=== PATIENT | female | born 1940 | race Caucasian/White ===

== ENCOUNTER 2017-04-06 16:29 | Emergency (ER) | payer OTHER, MEDICARE ==
[~2017-04-06] VITALS: Ht 162.6 cm; Wt 77.7 kg
[~2017-04-06 16:29] MED LIST: AVELOX400 MG PO; FENTANYL1 EAC5 TD; GABAPENTIN300 MG PO; HYDROMORPHONE HC4 MG PO; LEVOFLOXACIN750 MG; NEURONTIN600 M1 PO; Omega III EPA + DHA PO; Oyst-Cal D, Oscal W/ PO; PERCOCET 5/31 TABLET PO; THERAGRAN1 TABLET PO; VITAMIN C PO; VITAMIN D1000 INTUN PO; Zithromax PO
[2017-04-06 17:19] LABS: CHLORIDE 104 mEq/L (99-109); POTASSIUM 4.2 mEq/L (3.7-5.4); SODIUM 140 mEq/L (136-147)
[2017-04-06 17:21] LABS: ADD MIUA? NO; BILIRUBIN NEGATIVE; BLOOD NEGATIVE; COLOR YELLOW ((YELLOW)); GLUCOSE (STRIP) NEGATIVE; KETONES NEGATIVE; LEUKOCYTES NEGATIVE; NITRITE NEGATIVE; PROTEIN (STRIP) NEGATIVE; UCUL ADDED? NO; UROBILINOGEN 0.2 MG/DL (0.2-1.0)
[2017-04-06 17:21] LABS: GLUCOSE 135 mg/dL (70-99)
[2017-04-06 17:23] LABS: ANION GAP 10 MEQ/L (2-14)
[2017-04-06 17:25] LABS: GFR ESTIMATE (CALCULATED) > 59 mL/min/
[2017-04-06 17:26] LABS: UREA NITROGEN (BUN) 13 mg/dL (9-23)
[2017-04-06 18:28] VITALS: BP 116/70
== END 2017-04-06 19:23 | disposition home or self-care (01) ==
LOC: EME 16:29
PROVIDERS: Emergency Medicine
DX: I48.91 Unspecified atrial fibrillation (principal); G89.29 Other chronic pain; M54.5 Low back pain; E78.5 Hyperlipidemia, unspecified; Z79.01 Long term (current) use of anticoagulants; Z87.442 Personal history of urinary calculi
CPT/HCPCS: 80048; 81003; 93005; 99281; 99284

== ENCOUNTER 2018-02-12 00:43 | Inpatient (IN) | payer OTHER, MEDICARE ==
[~2018-02-12] VITALS: Ht 157.5 cm; Wt 70.2 kg
[2018-02-12 01:34] LABS: HEMATOCRIT 35.8 % (36.0-46.0); HEMOGLOBIN 11.9 G/DL (11.9-15.5); MCH 29.6 PG (29.0-34.0); MCHC 33.2 G/DL (30.0-36.0); MCV 89.1 FL (83-99); PLATELET COUNT 243 K/uL (156-360); RBC DIS.WIDTH-CV 13.8 % (11.8-14.6); RBC DIS.WIDTH-SD 44.9 % (39-53); RED BLOOD COUNT 4.02 M/uL (3.80-5.20); WHITE BLOOD COUNT 9.7 K/uL (4.1-10.2)
[2018-02-12 01:38] LABS: CARBON DIOXIDE (BICARBONATE) 26.3 MEQ/L (20-31)
[2018-02-12 01:45] LABS: ALBUMIN 4.3 g/dL (3.2-4.8)
[2018-02-12 01:46] LABS: CHLORIDE 103 mEq/L (99-109); POTASSIUM 3.4 mEq/L (3.7-5.4); SODIUM 137 mEq/L (136-147)
[2018-02-12 01:48] LABS: GLUCOSE 111 mg/dL (70-99); TOTAL PROTEIN 7.1 g/dL (6.4-8.3)
[2018-02-12 01:50] LABS: TOTAL BILIRUBIN 0.7 mg/dL (0.0-1.0)
[2018-02-12 01:51] LABS: ALKALINE PHOSPHATASE 61 IU/L (3-129)
[2018-02-12 01:52] LABS: CREATININE 0.7 mg/dL (0.6-1.3); GFR ESTIMATE (CALCULATED) > 59 mL/min/
[2018-02-12 01:53] LABS: AST (GOT) 16 IU/L (2-34); UREA NITROGEN (BUN) 10 mg/dL (9-23)
[2018-02-12 01:55] LABS: ALT (GPT) 11 IU/L (3-49); LIPASE 18 U/L (1.0-51.0)
[2018-02-12 01:57] LABS: INTER. NORMALIZED RATIO 1.4; TROP-I INTERPRETATION NEGATIVE; TROPONIN-I 0.01 ng/mL (0.0-0.30)
[2018-02-12 02:00] LABS: PTT 33.4 SEC (25-37)
[2018-02-12 05:49] LABS: MAGNESIUM 2.1 mg/dL (1.3-2.7)
[2018-02-12 05:54] LABS: PHOSPHORUS 2.7 mg/dL (2.5-4.9)
[2018-02-12 07:27] VITALS: BP 139/73
[2018-02-12 09:12] LABS: BENZODIAZEPINES, URINE SCREEN Negative (200 ng/mL)
[2018-02-12 11:12] VITALS: BP 109/65
[2018-02-12 12:36] LABS: TROP-I INTERPRETATION NEGATIVE; TROPONIN-I < 0.01 ng/mL (0.0-0.30)
[2018-02-12] MEDS ORDERED: NORVASC2.5 MG PO (13:06)
[2018-02-12] MEDS ORDERED: DILAUDID4 MG PO (13:06)
[2018-02-12] MEDS ORDERED: LEXAPRO10 MG PO (13:07)
[2018-02-12] MEDS ORDERED: CARDIZEM CD,CA180 MG PO (13:08)
[2018-02-12] MEDS ORDERED: EXCEDRIN MIGRA1 EAC3 PO (13:10)
[2018-02-12] MEDS ORDERED: ESBRIET267 MG PO (13:10)
[2018-02-12] MEDS ORDERED: HEART MEDICATION PO (13:12)
[2018-02-12 15:06] VITALS: BP 100/59
[2018-02-12 18:01] LABS: TROP-I INTERPRETATION NEGATIVE; TROPONIN-I < 0.01 ng/mL (0.0-0.30)
[2018-02-12 19:48] VITALS: BP 100/62
[2018-02-12 21:05] VITALS: BP 122/70
[2018-02-13] VITALS (7 sets, daily range): BP systolic 94–138; BP diastolic 55–78
[2018-02-13 06:16] LABS: HEMATOCRIT 36.3 % (36.0-46.0); HEMOGLOBIN 11.7 G/DL (11.9-15.5); MCH 28.7 PG (29.0-34.0); MCHC 32.2 G/DL (30.0-36.0); MCV 89.2 FL (83-99); PLATELET COUNT 257 K/uL (156-360); RBC DIS.WIDTH-CV 13.7 % (11.8-14.6); RBC DIS.WIDTH-SD 44.4 % (39-53); RED BLOOD COUNT 4.07 M/uL (3.80-5.20); WHITE BLOOD COUNT 8.5 K/uL (4.1-10.2)
[2018-02-13 06:39] LABS: CHLORIDE 100 MEQ/L (99-109); CREATININE 0.6 MG/DL (0.6-1.3); GFR ESTIMATE (CALCULATED) > 59 mL/min/; GLUCOSE 92 mg/dL (70-99); POTASSIUM 3.7 MEQ/L (3.7-5.4); SODIUM 141 MEQ/L (136-147); UREA NITROGEN (BUN) 14 mg/dL (9-23)
[2018-02-14] VITALS (7 sets, daily range): BP systolic 109–135; BP diastolic 57–75
[2018-02-14 06:38] LABS: BASOPHIL (%) 0.7 % (0-1); BASOPHIL COUNT 0.1 K/uL (0-0.1); EOSINOPHIL (%) 5.3 % (0-5); EOSINOPHIL COUNT 0.4 K/uL (0-0.3); HEMATOCRIT 36.6 % (36.0-46.0); HEMOGLOBIN 11.7 G/DL (11.9-15.5); IMMATURE GRANULOCYTE (%) 0.4 % (0.0-0.7); LYMPHOCYTE (%) 37.4 % (15-42); MCH 28.9 PG (29.0-34.0); MCV 90.4 FL (83-99); MONOCYTE (%) 10.3 % (3-12); MONOCYTE COUNT 0.8 K/uL (0-0.8); NEUTROPHIL (%) 45.9 % (45-76); NEUTROPHIL COUNT 3.7 K/uL (1.8-6.4); RBC DIS.WIDTH-CV 13.8 % (11.8-14.6); RBC DIS.WIDTH-SD 45.8 % (39-53); RED BLOOD COUNT 4.05 M/uL (3.80-5.20); WHITE BLOOD COUNT 8.1 K/uL (4.1-10.2)
[2018-02-14 06:51] LABS: CHLORIDE 100 MEQ/L (99-109); CREATININE 0.6 MG/DL (0.6-1.3); GFR ESTIMATE (CALCULATED) > 59 mL/min/; GLUCOSE 86 mg/dL (70-99); PLAT.SUFFICIENCY DECREASED; POTASSIUM 3.5 MEQ/L (3.7-5.4); SODIUM 139 MEQ/L (136-147); UREA NITROGEN (BUN) 17 mg/dL (9-23)
[2018-02-14 06:55] LABS: PLATELET COUNT 161 K/uL (156-360)
[2018-02-15 03:43] VITALS: BP 128/68
[2018-02-15 07:10] VITALS: BP 124/78
[2018-02-15 11:31] VITALS: BP 109/65
[2018-02-15] MEDS ORDERED: ELIQUIS5 MG PO (11:45)
== END 2018-02-15 14:43 | disposition home health service (06) | DRG 292 ==
LOC: EME 00:43 → 5SOUTH 04:14 → EDOF 04:14 → ENRESERV 04:27 → 5SOUTH 07:18
PROVIDERS: Emergency Medicine; Hospitalist
DX: I11.0 Hypertensive heart disease with heart failure (principal); I50.33 Acute on chronic diastolic (congestive) heart failure; I48.2 Chronic atrial fibrillation; J96.10 Chronic respiratory failure, unspecified whether with hypoxia or hypercapnia; J84.10 Pulmonary fibrosis, unspecified; M79.7 Fibromyalgia; E78.5 Hyperlipidemia, unspecified; G43.909 Migraine, unspecified, not intractable, without status migrainosus; K21.9 Gastro-esophageal reflux disease without esophagitis; I27.20 Pulmonary hypertension, unspecified; M06.9 Rheumatoid arthritis, unspecified; G89.29 Other chronic pain; M54.9 Dorsalgia, unspecified; Z79.82 Long term (current) use of aspirin; Z99.81 Dependence on supplemental oxygen; Z79.01 Long term (current) use of anticoagulants
CPT/HCPCS: 71045; 71046; 71250; 80048; 80053; 80306 90; 82803; 83605; 83690; 83735; 83880; 84100; 84484; 85025; 85027; 85610; 85730; 87040; 93005; 93306; 94640; 94799; 99281; 99285; J1650; J1940; J2270; J2405; J7030